=== PATIENT | male | born 1985 | race Caucasian/White ===

== ENCOUNTER → 2016-05-18 | Outpatient (CLI) | payer BC, OTHER | END | disposition home or self-care (01) | LOC: C.RDSM 08:00 | PROVIDERS: ATTEND Orthopaedic Surgery Sports Medicine | DX: R52 Pain, unspecified (principal) ==

== ENCOUNTER 2016-05-29 18:18 | Emergency (ER) | payer BC, OTHER ==
[~2016-05-29] VITALS: Ht 167.6 cm; Wt 106.7 kg
[2016-05-29 18:26] VITALS: Ht 167.6 cm; Wt 106.7 kg
[2016-05-29] MEDS ORDERED: XYLOCAINE 1%/SOD BICARB 20 ML VIAL INFIL STA (18:39)
--- NOTE | 2016-05-29 18:40 | EMERGENCY ROOM VISIT NOTE ---
ED Visit Note First contact with patient: 18:29 Chief Complaint: "Laceration left hand". History of Present Illness: This patient is a 30-year-old male who presents to the Emergency Department via private vehicle for evaluation of their left index finger laceration. Patient sustained the laceration one hour prior to arrival, while at his house attempting to replace the brake pads on his brother's car. They report a moderate amount of bleeding initially. They deny any numbness or tingling into the distal extremity. They report no decreased range of motion of the affected digit. Patient rates his current discomfort as a 0/10. Patient' s Tetanus status is currently up-to-date. Medications: No medications Allergies: No known allergies PMH: Noncontributory SHx: Patient lives at home with family. ROS: All pertinent positive and negative review of systems are appropriately documented in the History of Present Illness. Physical Exam: VITAL SIGNS - Vital signs and nursing notes were reviewed. GENERAL -30-year-old male appearing his stated age who is in no acute distress. Communicates well with provider and answers questions appropriately. SKIN - There is a 1 cm long laceration noted dorsal aspect of the left second digit. The edges gape apart with traction. No foreign bodies appreciated. Upon further examination there are no deep structures including vessel, tendon, or bony structures appreciated. There is moderate active bleeding noted. MUSCULOSKELETAL - Laceration as described above. +5/5 strength appreciated of the affected digit. Full range of motion of the affected digit. NEUROLOGIC - no neurologic deficits. VASCULAR - Capillary refill was brisk. The patient has appeared to have lacerated a small vessel overlying the left second PIP ED Course: Patient was seen and evaluated by myself. Risks and benefits of performing primary wound closure versus no repair were discussed with the patient who verbalizes understanding. Verbal consent was obtained prior to performing the procedure. 2 cc of 1% buffered lidocaine was used to perform local anesthetization of the left second digit. The wound was cleansed and prepped in the typical sterile fashion utilizing normal saline and Betadine. The wound was sterilely draped. Once proper anesthetization was established, the wound was further examined and demonstrated a clean linear laceration, without tendon or bone involvement but with moderate bleeding. The wound was copiously irrigated with normal saline and Betadine. Finger tourniquet was applied. The wound was closed using 2 simple, 5-0 nylon sutures with the wound edges being well approximated. Patient tolerated the procedure well. No complications were met. Hemostasis was achieved. The wound was cleansed and dressed with a Bacitracin dressing. A metal splint was applied to the finger for comfort. Patient educated on worrisome symptoms for return visit to the Emergency Department. Patient discharged to home in good condition. In the evaluation and treatment of this patient the following differential diagnoses were entertained: Finger laceration. Current/Historical Medications No Active Prescriptions or Reported Meds Allergies Coded Allergies: No Known Allergies (Verified , 05/29/16) Vital Signs Date Time Temp Pulse Resp B/P Pulse Ox O2 Delivery O2 Flow Rate FiO2 05/29/16 19:30 37.0 67 18 139/87 99 05/29/16 19:26 67 18 139/87 99 Room Air 05/29/16 18:26 37.0 70 18 148/88 98 Room Air Departure Information Impression Primary Impression: Laceration Dispostion Home / Self-Care Condition GOOD Prescriptions No Active Prescriptions or Reported Meds Referrals No Doctor, Assigned (PCP) Patient Instructions [facility] Additional Instructions Discharge Instructions: You have received 2 sutures on your left index finger. These sutures are NOT dissolvable and WILL need to be removed by a health care provider in 10-12 days. You can return to the Emergency Department or contact your Primary Care Provider to have the sutures removed. Please wear the splint for comfort until the sutures are removed. Proper wound care is essential for adequate wound healing and infection prevention. You can shower and clean the wound with soap and water. Do not scour over the wound, pat dry with a towel. Do not submerse the wound (i.e. bathe or dish wash) until the sutures have been removed. You can use an antibiotic ointment with a dressing over the wound for the next 3-4 days. After this time you may leave the wound dry and open to the air. If crust develops over the wound you can use a Q-tip to apply a 1:1 peroxide:water solution to clean the wound. Look for signs of infection of the wound including: increased pain, swelling, foul discharge, streaking, or increased temperature. If any of these are noticed you should return to the Emergency Department for further assessment and treatment. As with any laceration you may have received nerve damage to the surrounding tissues. This damage may or may not be permanent. You should keep the area covered with sunscreen for the first 6 months to 1 year when at risk for exposure to help minimize scarring. You can also use scar reducing creams or Vitamin E oil to help minimize scarring. For pain control, you can use the following [id number] medicines (if >12 yo): - Regular strength (325mg/tab) Tylenol (acetaminophen) 2 tabs every 4-6 hours as needed. Do not exceed 12 tablets in a 24 hour period. Avoid taking more than 4 grams (4000 mg) of Tylenol per day. This includes any other sources of acetaminophen you may take on a regular basis. - Regular strength (200 mg/tab) Advil (ibuprofen) 1-2 tabs every 4-6 hours as needed. Do not exceed a dose of 3200 mg per day. Return to the emergency department if your symptoms worsen despite treatment course outlined above. Please return to the emergency department with any new/concerning symptoms.
[2016-05-29 19:30] VITALS: BP 139/87; PULSE 67; TEMP 37; O2SAT 99
== END 2016-05-29 19:31 | disposition home or self-care (01) ==
LOC: C.EDB 18:21 → C.EDD 19:31
DX: S61.211A Laceration without foreign body of left index finger without damage to nail, initial encounter (principal); X58.XXXA Exposure to other specified factors, initial encounter; Y92.009 Unspecified place in unspecified non-institutional (private) residence as the place of occurrence of the external cause; Y99.8 Other external cause status

== ENCOUNTER → 2017-04-06 | Outpatient (CLI) | payer OTHER ==
[~2017-04-06] MED LIST: GADAVIST IV PRN
--- NOTE | 2017-04-06 13:35 | DIAGNOSTIC IMAGING REPORT ---
FLUOROSCOPICALLY GUIDED RIGHT SHOULDER ARTHROGRAM PRE-MRI CLINICAL HISTORY: Persistent right shoulder pain COMPARISON STUDY: Conventional radiographic study dated 05/18/2016 FINDINGS: A timeout was performed. The risks the procedure were explained the patient informed consent was obtained. 15 seconds of fluoroscopic time was utilized. A single fluoroscopic spot image was obtained. Patient prepped and draped in sterile fashion. The skin was anesthetized 1% lidocaine. A 20-gauge needle was introduced into the joint capsule. Under fluoroscopic guidance, a mixture of Optiray 300 and gadolinium was instilled into the joint. A single fluoroscopic spot image documents intra-articular location of the contrast. The patient was sent to the MRI suite for further imaging. There were no immediate locations. IMPRESSION: Successful fluoroscopically guided right shoulder gadolinium arthrogram pre-MRI. Electronically signed by: Armando Stiles M.D. 04/06/2017 1:34 PM Dictated Date/Time: 04/06/2017 1:31 PM
--- NOTE | 2017-04-06 14:38 | DIAGNOSTIC IMAGING REPORT ---
MRI ARTHROGRAM OF THE RIGHT SHOULDER CLINICAL HISTORY: Persistent right shoulder pain despite conservative measures. COMPARISON STUDY: Right shoulder radiographs May 18, 2016. TECHNIQUE: Following a fluoroscopically guided right shoulder arthrogram and utilizing a 1.5 Julianna magnet, multiplanar, multiecho imaging of the right shoulder was performed without intravenous contrast. FINDINGS: Alignment of the right shoulder is anatomic. There is no suspicious marrow replacement. There is no significant marrow edema. There is minimal cystic change within the anteromedial right humeral head. There is capsular hypertrophy of the acromioclavicular joint. There is no significant glenohumeral joint arthrosis. There is no full-thickness rotator cuff tear. There is mild intermediate signal within distal supraspinatus suggestive of tendinopathy. There is no tendon retraction or muscular atrophy. The posterior superior glenoid labrum is somewhat diminutive and irregular. This may reflect a tear. The proximal long head of biceps tendon is intact. There is no mass or fluid collection adjacent to the right shoulder. IMPRESSION: 1. Diminutive irregular posterior superior glenoid labrum which favors a labral tear. 2. No full-thickness rotator cuff tear. Mild supraspinatus tendinopathy. 3. Moderate arthrosis of the right acromioclavicular joint. 3. Intact proximal long head of the biceps tendon. Electronically signed by: Gregory Rushing M.D. 04/06/2017 2:36 PM Dictated Date/Time: 04/06/2017 2:01 PM
== END | disposition home or self-care (01) ==
LOC: C.MRIBC 12:52
PROVIDERS: ATTEND Orthopaedic Surgery Sports Medicine
DX: M25.511 Pain in right shoulder (principal); M75.20 Bicipital tendinitis, unspecified shoulder